=== PATIENT | female | born 1960 | race Caucasian/White ===

== ENCOUNTER → 2020-01-05 | Outpatient (CLI) | payer BC ==
[~2020-01-05] MED LIST: IOHEXOL 240 MG/ML 50ML VIAL. PO ONE; IOHEXOL 300 MG/ML 100ML VIAL. IV ONE; LEVO25TA55 PO; PANT40TA77 PO; ZOLP5TAB PO
--- NOTE | 2020-01-05 11:11 | KCIC ---
CT of the abdomen and pelvis with contrast 01/05/2020 INDICATION: Abdominal pain. COMPARISON STUDY: CT of the abdomen and pelvis April 13, 2014 TECHNIQUE: Multidetector CT imaging of the abdomen and pelvis was performed following the administration of IV contrast. Findings: Visualized lung bases are unremarkable. The liver is unremarkable. Prior cholecystectomy noted. The spleen, adrenal glands, and pancreas are unremarkable. Kidneys are unremarkable. There is no bowel obstruction. No acute inflammatory change involving visualized bowel is identified. Descending and sigmoid colonic diverticulosis is noted. No evidence of acute diverticulitis is identified. The appendix is unremarkable. No free fluid or free air seen in the abdomen or pelvis. No acute osseous abnormalities are identified. Mild atherosclerotic vascular disease noted. IMPRESSION: No evidence of acute intra-abdominal abnormality CT DOSING PQRS STATEMENT: One or more of the following individualized dose reduction techniques were utilized for this examination: 1. Automated exposure control 2. Adjustment of the mA and/or kV according to patient size 3. Use of iterative reconstruction technique. Electronically signed by: Michael Nguyen MD (01/05/2020 11:08 AM) [id number]
== END | disposition home or self-care (01) ==
LOC: KCIC CT 08:36
PROVIDERS: ATTEND Internal Medicine Gastroenterology
DX: K57.30 Diverticulosis of large intestine without perforation or abscess without bleeding (principal); Z90.49 Acquired absence of other specified parts of digestive tract
CPT/HCPCS: 74177; Q9966; Q9967